=== PATIENT | male | born 1975 | race Caucasian/White ===

== ENCOUNTER 2016-06-10 10:22 | Emergency (ER) | payer OTHER ==
[~2016-06-10 10:22] MED LIST: BENZONATATE PO; LORTAB 7.51 TAB 7.5/; PHENERGAN DM1 ML PO; VIBRAMYCIN100 M1 DOB
== END 2016-06-10 10:31 | disposition home or self-care (01) ==
LOC: CFTX 10:22
DX: K08.89 Other specified disorders of teeth and supporting structures (principal); R03.0 Elevated blood-pressure reading, without diagnosis of hypertension
CPT/HCPCS: 96372; 99283

== ENCOUNTER 2016-10-26 12:38 | Emergency (ER) | payer OTHER ==
[~2016-10-26] VITALS: Ht 175.3 cm; Wt 104.3 kg
== END 2016-10-26 13:49 | disposition home or self-care (01) ==
LOC: CED 12:38
DX: L03.314 Cellulitis of groin (principal); L73.8 Other specified follicular disorders; F17.200 Nicotine dependence, unspecified, uncomplicated
CPT/HCPCS: 99283